=== PATIENT | male | born 2000 | race Caucasian/White ===

== ENCOUNTER 2020-11-07 06:33 | Emergency (ER) | payer BC, OTHER ==
[~2020-11-07] VITALS: Ht 172.7 cm; Wt 56.8 kg
[2020-11-07 06:35] VITALS: BP 124/78
[2020-11-07] MEDS ORDERED: acetaminophen 325mg tablet PO ONE (06:35)
[2020-11-07] MEDS ORDERED: METH-797 PO (06:40)
== END 2020-11-07 07:05 | disposition home or self-care (01) ==
LOC: ER 06:34
DX: M25.551 Pain in right hip (principal); G89.29 Other chronic pain; M54.5 Low back pain; Z87.891 Personal history of nicotine dependence; Z79.899 Other long term (current) drug therapy; V87.7XXA Person injured in collision between other specified motor vehicles (traffic), initial encounter; Y93.89 Activity, other specified; Y92.488 Other paved roadways as the place of occurrence of the external cause; Y99.8 Other external cause status
CPT/HCPCS: 99283

== ENCOUNTER 2025-03-16 10:23 | Emergency (ER) | payer SELFPAY ==
[~2025-03-16] VITALS: Ht 172.7 cm; Wt 70.4 kg
[~2025-03-16 10:23] MED LIST: METH-797 PO
[2025-03-16 10:51] LABS: MEAN PLATELET VOLUME 10.1 FL (7.4-10.4); RED CELL DISTRIBUTION WIDTH 13.0 % (11.5-14.5)
[2025-03-16 11:03] LABS: CREATININE 1.06 MG/DL (0.60-1.10); TOTAL CARBON DIOXIDE 27.5 MMOL/L (24-32); eCRCL 103 ML/MIN; eGFR 85 ML/MIN
--- NOTE | 2025-03-16 11:31 | RADIOLOGY REPORT ---
EXAM: CT CT HEAD INDICATION: Trauma. TECHNIQUE: CT of the head without intravenous contrast. Coronal and sagittal reformatted images are submitted. Radiation Dose : 1. Head: CT Dose: CTDI volume is 60.3 mGy. Dose-length product is 1044.1 mGy*cm The dose indicators for CT are the volume Computed Tomography (CT) Dose Index (CTDIvol) and the Dose Length Product (DLP), and are measured in units of mGy and mGy-cm, respectively. These indicators are not patient dose, but values generated from the CT scanner acquisition factors. The report includes radiation exposure data for exposures received during this examination. All CT scans at this medical facility are performed using dose modulation techniques as appropriate to a performed exam including the following: Automated exposure control was utilized; adjustment of the MA and/or KV according to patient size; and use of iterative reconstruction technique. COMPARISON: None FINDINGS: There is no evidence of acute intracranial hemorrhage, extra-axial collection, mass effect, midline shift, herniation or hydrocephalus. There is hypodensity in the left castañeda radiata consistent with encephalomalacia. The ventricles, sulci and cisterns are age appropriate. The george-white differentiation is intact. The visualized paranasal sinuses and mastoid air cells are clear. No depressed calvarial fracture. The surrounding soft tissues are unremarkable. IMPRESSION: 1. No evidence of acute intracranial abnormality. 2. Encephalomalacia in the left castañeda radiata.
--- NOTE | 2025-03-16 11:34 | RADIOLOGY REPORT ---
EXAM: CT CT CERVICAL SPINE INDICATION: trauma 2 EXAM DATE: 03/16/2025 11:01 AM COMPARISON: CT CT HEAD on DOS: 03/16/25 TECHNIQUE: Multiple axial CT images of the cervical spine were obtained using bone algorithm. Sagittal and coronal reformatting was done. Bone and soft tissue windows were reviewed. Radiation Dose Information: CT Dose: CTDI volume is 18.7 mGy. Dose-length product is 494.2 mGy*cm FINDINGS: The cervical alignment is intact. The curvature is maintained. No acute cervical spine fracture is identified. The vertebral body heights are intact. No suspicious osseous lesions are identified. No evidence of significant spinal or neural foraminal stenosis. There is no prevertebral soft tissue swelling. The lung apices are clear. IMPRESSION: 1. No evidence of acute cervical spine fracture or traumatic malalignment.
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
[2025-03-16 12:06] VITALS: TEMP 98
[2025-03-16] MEDS ORDERED: CYCL-1 PO (12:27)
[2025-03-16 13:05] VITALS: BP 125/73; PULSE 94; RESP 18; O2SAT 100
== END 2025-03-16 13:11 | disposition home or self-care (01) ==
LOC: ER 10:24
DX: S00.03XA Contusion of scalp, initial encounter (principal); G89.29 Other chronic pain; Z79.899 Other long term (current) drug therapy; V49.9XXA Car occupant (driver) (passenger) injured in unspecified traffic accident, initial encounter; Y93.89 Activity, other specified; Y92.89 Other specified places as the place of occurrence of the external cause; Y99.8 Other external cause status
CPT/HCPCS: 36415; 70450; 72125; 80053; 85025; 99285